=== PATIENT | male | born 1950 | race Caucasian/White ===

== ENCOUNTER → 2018-02-04 | Outpatient (CLI) | payer MEDICARE, OTHER ==
[2018-02-04 08:08] LABS: ABSOLUTE EOSINOPHILS # (AUTO) 0.2 10^3/uL (0.0-0.6); ABSOLUTE LYMPHOCYTES (AUTO) 1.6 10^3/uL (0.5-4.7); ABSOLUTE MONOCYTES (AUTO) 0.5 10^3/uL (0.1-1.4); ABSOLUTE NEUT (AUTO) 3.8 10^3/uL (1.7-8.2); BASOPHILS % (AUTO) 0.8 % (0-2); EOSINOPHILS % (AUTO) 2.5 % (0-6); HEMATOCRIT 46.1 % (37.9-51.0); HEMOGLOBIN 15.8 g/dL (13.5-17.0); LYMPHOCYTES % (AUTO) 25.8 % (13-45); MEAN CORPUSCULAR HEMOGLOBIN 30.3 pg (27.0-33.4); MEAN CORPUSCULAR HGB CONC 34.3 g/dL (32.0-36.0); MEAN CORPUSCULAR VOLUME 88 fl (80-97); PLATELET COUNT 155 10^3/uL (150-450); RED BLOOD COUNT 5.22 10^6/uL (4.35-5.55); RED CELL DISTRIBUTION WIDTH 13.4 % (11.5-14.0); SEGMENTED NEUTROPHILS % (AUTO) 61.9 % (42-78); TOTAL CELLS COUNTED % (AUTO) 100 %; WHITE BLOOD COUNT 6.1 10^3/uL (4.0-10.5)
--- NOTE | 2018-02-04 08:19 | RADIOLOGY REPORT (SQ) ---
EXAM DESCRIPTION: CHEST PA/LATERAL COMPLETED DATE/TIME: 02/04/2018 8:00 am REASON FOR STUDY: PRE-OP COMPARISON: None. EXAM PARAMETERS: NUMBER OF VIEWS: two views TECHNIQUE: Digital Frontal and Lateral radiographic views of the chest acquired. RADIATION DOSE: NA LIMITATIONS: none FINDINGS: LUNGS AND PLEURA: No opacities, masses or pneumothorax. No pleural effusion. MEDIASTINUM AND HILAR STRUCTURES: No masses or contour abnormalities. HEART AND VASCULAR STRUCTURES: Heart normal size. No evidence for failure. BONES: No acute findings. HARDWARE: None in the chest. OTHER: No other significant finding. IMPRESSION: NO SIGNIFICANT RADIOGRAPHIC FINDING IN THE CHEST. TECHNICAL DOCUMENTATION: JOB ID: [id number] [employer]- All Rights Reserved Reading location - IP/workstation name: [email or web address]
[2018-02-04 08:33] LABS: ANION GAP 9 (5-19); BLOOD UREA NITROGEN 24 mg/dL (7-20); CALCIUM 9.7 mg/dL (8.4-10.2); CARBON DIOXIDE 31 mmol/L (22-30); CHLORIDE 104 mmol/L (98-107); GLUCOSE 79 mg/dL (75-110); POTASSIUM 5.6 mmol/L (3.6-5.0); SODIUM 143.6 mmol/L (137-145)
[2018-02-04 08:57] LABS: APPEARANCE,URINE CLEAR; BILIRUBIN,URINE NEGATIVE (NEGATIVE); COLOR,URINE YELLOW; GLUCOSE, URINE NEGATIVE (NEGATIVE); KETONES,URINE NEGATIVE (NEGATIVE); LEUKOCYTE ESTERASE,URINE NEGATIVE (NEGATIVE); NITRITE,URINE NEGATIVE (NEGATIVE); PROTEIN,URINE NEGATIVE (NEGATIVE); URINE SPECIFIC GRAVITY 1.016; UROBILINOGEN,URINE NEGATIVE mg/dL (<2.0)
--- NOTE | 2018-02-04 10:30 | EKG REPORT ---
SEVERITY:- NORMAL ECG - SINUS RHYTHM : Confirmed by: Dianelys Valdez 04-Feb-2018 10:29:39
== END ==
LOC: OD 07:19
PROVIDERS: ATTEND Orthopaedic Surgery
DX: Z01.810 Encounter for preprocedural cardiovascular examination (principal); Z01.812 Encounter for preprocedural laboratory examination; Z01.818 Encounter for other preprocedural examination
CPT/HCPCS: 36415; 71046; 80048; 81001; 85025; 93005; 93010

== ENCOUNTER → 2018-02-10 | Outpatient (CLI) | payer MEDICARE, OTHER ==
[2018-02-10 11:37] LABS: ABSOLUTE EOSINOPHILS # (AUTO) 0.1 10^3/uL (0.0-0.6); ABSOLUTE LYMPHOCYTES (AUTO) 1.7 10^3/uL (0.5-4.7); ABSOLUTE MONOCYTES (AUTO) 0.6 10^3/uL (0.1-1.4); BASOPHILS % (AUTO) 0.4 % (0-2); HEMATOCRIT 46.3 % (37.9-51.0); LYMPHOCYTES % (AUTO) 22.8 % (13-45); MEAN CORPUSCULAR HEMOGLOBIN 30.2 pg (27.0-33.4); MEAN CORPUSCULAR HGB CONC 34.4 g/dL (32.0-36.0); MEAN CORPUSCULAR VOLUME 88 fl (80-97); MONOCYTES % (AUTO) 8.5 % (3-13); PLATELET COUNT 164 10^3/uL (150-450); RED BLOOD COUNT 5.29 10^6/uL (4.35-5.55); RED CELL DISTRIBUTION WIDTH 13.5 % (11.5-14.0); SEGMENTED NEUTROPHILS % (AUTO) 67.3 % (42-78); TOTAL CELLS COUNTED % (AUTO) 100 %; WHITE BLOOD COUNT 7.4 10^3/uL (4.0-10.5)
[2018-02-10 11:42] LABS: APPEARANCE,URINE CLEAR; BILIRUBIN,URINE NEGATIVE (NEGATIVE); COLOR,URINE YELLOW; GLUCOSE, URINE NEGATIVE (NEGATIVE); KETONES,URINE NEGATIVE (NEGATIVE); LEUKOCYTE ESTERASE,URINE NEGATIVE (NEGATIVE); NITRITE,URINE NEGATIVE (NEGATIVE); PROTEIN,URINE NEGATIVE (NEGATIVE); UROBILINOGEN,URINE NEGATIVE mg/dL (<2.0)
[2018-02-10 12:00] LABS: ANION GAP 10 (5-19); BLOOD UREA NITROGEN 21 mg/dL (7-20); CALCIUM 9.7 mg/dL (8.4-10.2); CARBON DIOXIDE 29 mmol/L (22-30); CHLORIDE 104 mmol/L (98-107); GLUCOSE 97 mg/dL (75-110); POTASSIUM 4.5 mmol/L (3.6-5.0); SODIUM 142.7 mmol/L (137-145)
== END ==
LOC: OD 10:32
PROVIDERS: ATTEND Orthopaedic Surgery
DX: Z01.818 Encounter for other preprocedural examination (principal)
CPT/HCPCS: 36415; 80048; 81001; 85025

== ENCOUNTER 2018-03-08 05:33 | Inpatient (IN) | payer MEDICARE, OTHER ==
[~2018-03-08 05:33] MED LIST: CEFAZOLIN SODIUM 2 GM in DEXTROSE 5%-WATER 100 ML IV PRN; IBUPROFEN 800 MG in NORMAL SALINE 250 ML IV PRN; LACTATED RINGERS 1000 ML IV PRN; OXYCODONE HCL SR 10 MG TABLET PO PRN
[2018-03-08] MEDS ORDERED: BUPIVACAINE INJ/PF LIPOSOME/PF 266 MG/20 ML SDV ONE (05:41)
[2018-03-08] MEDS ORDERED: FENTANYL CITRATE INJ/PF 250 MCG/5 ML AMPULE ONE (06:24)
[2018-03-08] MEDS ORDERED: LIDOCAINE 2% INJ-PF (20 MG/ML) 10 ML AMPUL ONE (06:24)
[2018-03-08] MEDS ORDERED: PROPOFOL INJ 200 MG/20 ML VIAL IV ONE (06:25)
[2018-03-08] MEDS ORDERED: MIDAZOLAM 2 MG/2 ML INJ ONE (06:25)
[2018-03-08] MEDS ORDERED: DEXAMETHASONE SOD PHOSPHATE INJ 4 MG/1 ML VIAL ONE (06:25)
[2018-03-08] MEDS ORDERED: ONDANSETRON HCL INJ/PF 4 MG/2 ML SDV ONE (06:25)
[2018-03-08] MEDS ORDERED: ACETAMINOPHEN 100 ML IV ONE ×2 (06:25→16:30)
[2018-03-08] MEDS ORDERED: ONDANSETRON HCL INJ/PF 4 MG/2 ML SDV IV PRN (08:34)
[2018-03-08] MEDS ORDERED: PROMETHAZINE HCL INJ 25 MG/1 ML VIAL IV PRN ×2 (08:34)
[2018-03-08] MEDS ORDERED: MORPHINE SULFATE 10 MG/ML INJ IV PRN ×4 (08:34→10:36)
[2018-03-08] MEDS ORDERED: FENTANYL CITRATE INJ/PF 100 MCG/2 ML AMPUL IV PRN ×3 (08:34)
[2018-03-08] MEDS ORDERED: DIPHENHYDRAMINE HCL 50 MG/ML VIAL IV PRN ×2 (08:34→10:36)
[2018-03-08] MEDS ORDERED: MEPERIDINE HCL/PF INJ 25 MG/1 ML DISP.SYRIN IV PRN (08:34)
[2018-03-08] MEDS ORDERED: ONDANSETRON 4 MG TAB.RAPDIS PO PRN (10:36)
[2018-03-08] MEDS ORDERED: OXYCODONE HCL IR 5 MG TABLET PO PRN (10:36)
[2018-03-08] MEDS ORDERED: MORPHINE SULFATE 10 MG/ML INJ IM PRN (10:36)
--- NOTE | 2018-03-08 10:36 | Operative Report ---
Operative Report DATE OF SURGERY: 03/08/18 PREOPERATIVE DIAGNOSIS: Right shoulder osteoarthritis POSTOPERATIVE DIAGNOSIS: Same OPERATION: Right total shoulder arthroplasty SURGEON: ELLEN CRESPO ANESTHESIA: GA COMPLICATIONS: None ESTIMATED BLOOD LOSS: 150cc PROCEDURE: Indication for above procedure: 67-year-old male with long-standing history of right shoulder pain and discomfort. Patient was found to have degenerative joint disease of his right shoulder. Attempted conservative measures including activity modification, anti -inflammatories and injections which failed to provide long-term relief. Patient continued to have discomfort limiting his activities of daily living. Decision was then made to proceed with operative treatment. Procedure In Detail: Patient was seen and evaluated in the preoperative holding area. The RIGHT upper extremity was initialized and marked. Patient received 600 mg clindamycin IV for bacterial prophylaxis. Patient was taken back to the operative room where transferred to the operative table and placed under general anesthesia. Once they were adequately anesthetize patient was placed in the beachchair position bilateral lower extremities were carefully padded along with the left nonoperative upper extremity and cervical spine placed in neutral position. A surgical team debriefing was performed ensuring all instrumentation was available, the surgical procedure was discussed with possible concerns reviewed. The upper extremity was prepped with chlorhexidine and draped in a sterile fashion. A timeout was done identifying correct patient, procedure and extremity everyone in attendance agree with this and verbalized no concerns. Longitudinal skin incision at the deltopectoral interval was made. Any peripheral bleeding was controlled with cautery. The cephalic vein was identified and retracted in a lateral direction. The clavicle pectoral fascia was then incised. 3 small vessels inferior to the subscapularis was identified and cauterized. The bicipital groove was opened and the biceps tendon retracted. The rotator interval was opened and the biceps tendon tenotomized to allow for later tenodesis. The axillary nerve was identified medially and protected throughout the entirety of the case. The subscapularis was peeled from its insertion on the lesser tuberosity to allow for later repair. The joint was then entered with adduction external rotation delivering the humeral head. Significant osteophytes were identified throughout the humeral head. With the cutting guide the humeral head was osteotomized and placed in the back table to allow for later bone grafting. The canal finder was utilized to confirm placement of the Arthrex approaches. I then began broaching broaching up to a size 12 broach and got good peripheral fit. The broach was then removed and a cover placed onto the proximal humerus. The anterior capsule was then from the subscapularis and released to allow exposure of the glenoid. Careful dissection of the inferior labrum was done to avoid injury to the axillary nerve. The labrum was then excised in its entirety. With a Fukuda retractor the glenoid was exposed. I then began preparation of the glenoid. The glenoid sizer was placed on the glenoid and the central pin placed. Cannulated central drill was utilized to prepare the central drill hole. The aiming arm for the pegged glenoid was then placed within the central hole. The glenoid was then prepared with the planar removing the superior cartilage down to cancellus bone. The superior peg was drilled and the inferior keel drilled as well. With an impactor I confirmed adequate preparation of the glenoid. Wound was then copiously irrigated with normal saline a trial placed. The trial components were then inserted I had good stability with abduction and internal rotation to 60. Good stability adduction 50 external rotation. I was able to shift the humeral head posteriorly approximately 40% indicating adequate sizing. The trial components were then removed and the wound copiously irrigated with normal saline. On the back table I utilized the bone graft from the humeral head and placed around the PEG of my glenoid component. My campaign assistant prepared the cement once the cement was the adequate consistency it was placed within the peg holes of the glenoid and a small portion placed on the pegs of the implant. The cement holes were pressurized 3 times to ensure adequate filling of the cement. I then implanted the glenoid component maintaining pressure until the cement was set. I then turned my attention to implantation of the humeral component. FiberWire #2 was placed through the implant to allow subscapularis repair. 2 drill holes were placed within the bicipital groove and the implant was impacted into position. The trial head was placed to ensure appropriate offset this was then removed and the definitive humeral head implant was impacted into position. Special attention to adequate impaction of the humeral head was confirmed. The humerus was then reduced there was 50% posterior translation with bounce back, 60 of internal rotation abduction and 40 external rotation. The wound was copiously irrigated with normal saline. I then proceeded with subscapularis repair. Four horizontal mattress sutures were placed within the subscapularis. The superior limb was then tied to the transosseous suture superiorly and the most inferior limb secured with the inferior transosseous suture. In a crossing the configuration 2 additional sutures were secured to the remaining transosseous sutures. Then the remaining suture from the horizontal mattress were secured which allowed excellent fixation of the subscapularis with stability to 40 of external rotation. Deep soft tissue was infiltrated with Exparel for postoperative pain control. The wound was once again copiously irrigated with normal saline. The deltopectoral interval was then reapproximated with 0 Vicryl suture. Subcutaneous tissues closed with 3-0 Monocryl suture. Skin was closed with antoinette. Wound was dressed with Acticoat dressing and patient placed in a splint. Sponge counts, instrument counts, needle counts counts were correct. Patient was then awoken from anesthesia. Transferred from the operating room table to the operating room stretcher. There was no intraoperative complications patient tolerated procedure well stable to PACU. Postoperative plan: Patient will be admitted for 24-hour observation with discharge to home on . Will begin physical therapy 2 weeks postoperatively as per total shoulder protocol avoiding active internal rotation and passive external rotation greater than 40. May begin active assistive range of motion abduction and forward flexion. Patient will be started on Xarelto for DVT prophylaxis while inpatient and on aspirin at home.
[2018-03-08] MEDS ORDERED: RINGERS SOLUTION,LACTATED 1,000 ML IV PRN (10:37)
--- NOTE | 2018-03-08 12:12 | RADIOLOGY REPORT (SQ) ---
EXAM DESCRIPTION: SHOULDER RIGHT 2 OR MORE VIEWS COMPLETED DATE/TIME: 03/08/2018 11:56 am REASON FOR STUDY: s/p tsa M19.011 PRIMARY OSTEOARTHRITIS, RIGHT SHOULDER COMPARISON: None. NUMBER OF VIEWS: Two views. TECHNIQUE: Internal and external rotation images acquired of the right shoulder. LIMITATIONS: None. FINDINGS: Expected postoperative changes from shoulder arthroplasty. Components in expected locatio n. IMPRESSION: Satisfactory postop total shoulder arthroplasty. TECHNICAL DOCUMENTATION: JOB ID: [id number] [employer]- All Rights Reserved Reading location - IP/workstation name: [email or web address]
--- NOTE | 2018-03-08 13:08 | PDOC CONSULTATION ---
Consultation Consult Date: 03/08/18 Attending physician:: ASHLEY CARMONA Consult reason:: difficult catheterization of bladder History of Present Illness Admission Date/PCP: 03/08/18 05:33 HEATHER WOODS PA-C Patient complains of: coming for shoulder surgery, did not have any urinary problems before History of Present Illness: JAYCEE FLORIAN is a 67 year old male Past Medical History Musculoskeltal Medical History: Reports: Arthritis Denies: Fibromyalgia Past Surgical History Past Surgical History: Reports: Tonsillectomy Denies: Appendectomy, Cholecystectomy, Coronary Artery Bypass Graft, Gastric Bypass Surgery, Herniorrhaphy, Pacemaker Social History Smoking Status: Current Every Day Smoker Hx Recreational Drug Use: No Hx Prescription Drug Abuse: No - Advance Directive Resuscitation Status: Full Code Family History Parental Family History Reviewed: No Children Family History Reviewed: No Sibling(s) Family History Reviewed.: No Medication/Allergy Home Medications: Aspirin [Aspirin 325 mg Tablet] 325 mg PO DAILY 21 Days #21 tablet 03/08/18 Oxycodone HCl/Acetaminophen [Percocet 5-325 mg Tablet] 1 - 2 tab PO ASDIR PRN # 35 tablet 03/08/18 Allergies/Adverse Reactions: No Known Allergies Allergy (Verified 03/08/18 06:35) Physical Exam Vital Signs: Temp Pulse Resp BP Pulse Ox 98.0 F 89 17 125/69 93 03/08/18 11:44 03/08/18 11:44 03/08/18 11:44 03/08/18 11:44 03/08/18 11:44 Intake & Output 03/07/18 03/08/18 03/09/18 06:59 06:59 06:59 Intake Total 0 4050 Output Total 1250 Balance 0 2800 Results Laboratory Results: 03/08/18 06:01 Blood Type AB POSITIVE Antibody Screen NEGATIVE Impressions: Shoulder X-Ray 03/08/18 00:00 IMPRESSION: Satisfactory postop total shoulder arthroplasty. Assessment & Plan - Diagnosis (1) BPH loc w/o ur obs/LUTS Is this a current diagnosis for this admission?: No - Plan Summary Plan Summary: ultrasound was done to check residual of bladder, was not significant and he was able to void freely 120 cc
[2018-03-08] MEDS ORDERED: PHENYLEPHRINE HCL INJ/PF 10 MG/1 ML SDV ONE (13:26)
[2018-03-08] MEDS ORDERED: SUCCINYLCHOLINE CHLORIDE INJ 200 MG/10 ML VIAL ONE (13:26)
[2018-03-08] MEDS ORDERED: CEFAZOLIN 2 GM/D5W RTU 50 ML IV SCH (14:00)
[2018-03-08] MEDS: CEFAZOLIN SODIUM 2 GM in DEXTROSE 5%-WATER 100 ML IV SCH ×2 (14:21→21:55)
--- NOTE | 2018-03-08 16:40 | Progress Note ---
Provider Note Provider Note: Patient sitting at bedside comfortably. States pain is controlled. Denies fever chills or sweats. Has been able to void with out any difficulty. Right upper extremity: Dressing clean/dry/intact. No sensory deficits. Full elbow, wrist and hand range of motion. Patient doing well status post right total shoulder arthroplasty. Anticipate discharge in a.m. 03/09/18
[2018-03-08] MEDS: PREGABALIN 75 MG CAPSULE PO SCH (17:50)
[2018-03-08] MEDS: LANSOPRAZOLE 15 MG TAB.RAP.DR PO PRN ×2 (20:14→20:16)
[2018-03-08] MEDS: OXYCODONE HCL SR 10 MG TABLET PO SCH (20:35)
[2018-03-08] MEDS ORDERED: RIVAROXABAN 10 MG TABLET PO SCH (22:00)
[2018-03-09] MEDS ORDERED: LANSOPRAZOLE 30 MG TAB.RAP.DR PO SCH (06:00)
[2018-03-09] MEDS: CEFAZOLIN SODIUM 2 GM in DEXTROSE 5%-WATER 100 ML IV SCH (06:37)
[2018-03-09 07:10] LABS: HEMATOCRIT 34.2 % (37.9-51.0); HEMOGLOBIN 11.8 g/dL (13.5-17.0); MEAN CORPUSCULAR HEMOGLOBIN 30.3 pg (27.0-33.4); MEAN CORPUSCULAR HGB CONC 34.4 g/dL (32.0-36.0); MEAN CORPUSCULAR VOLUME 88 fl (80-97); PLATELET COUNT 127 10^3/uL (150-450); RED BLOOD COUNT 3.89 10^6/uL (4.35-5.55); RED CELL DISTRIBUTION WIDTH 13.4 % (11.5-14.0); WHITE BLOOD COUNT 13.7 10^3/uL (4.0-10.5)
[2018-03-09 07:24] LABS: ANION GAP 8 (5-19); BLOOD UREA NITROGEN 16 mg/dL (7-20); CALCIUM 8.7 mg/dL (8.4-10.2); CARBON DIOXIDE 30 mmol/L (22-30); CHLORIDE 103 mmol/L (98-107); GLUCOSE 104 mg/dL (75-110); POTASSIUM 4.1 mmol/L (3.6-5.0); SODIUM 140.7 mmol/L (137-145)
[2018-03-09 08:27] VITALS: BP 121/90
[2018-03-09] MEDS: PREGABALIN 75 MG CAPSULE PO SCH (10:06)
[2018-03-09] MEDS: OXYCODONE HCL SR 10 MG TABLET PO SCH (10:07)
== END 2018-03-09 12:00 | disposition home or self-care (01) | DRG 483 ==
LOC: INOR 05:33 → 4N 12:04
PROVIDERS: ADMIT Orthopaedic Surgery; ATTEND Orthopaedic Surgery
PROC: 0RRJ0JZ Replacement of Right Shoulder Joint with Synthetic Substitute, Open Approach (ICD-10-PCS; principal; 2018-03-08 07:30)
DX: M19.011 Primary osteoarthritis, right shoulder (principal); F17.200 Nicotine dependence, unspecified, uncomplicated; Z80.42 Family history of malignant neoplasm of prostate; R39.198 Other difficulties with micturition
CPT/HCPCS: 01638; 36415; 80048; 85027; 86850; 86900; 86901; 88305; 88311; 94799; C9290; G8984-GO; G8985-GO; J0131; J0330; J0690; J1100; J1741; J2250; J2370; J2405; J2704; J3010; J3490; J7050; L3650; S0119

== ENCOUNTER → 2018-04-07 | Outpatient (CLI) | payer MEDICARE, OTHER ==
--- NOTE | 2018-04-07 13:52 | RADIOLOGY REPORT (SQ) ---
EXAM DESCRIPTION: CT ABD/PELVIS COMBO COMPLETED DATE/TIME: 04/07/2018 1:29 pm REASON FOR STUDY: R31.0 GROSS HEMATURIA R31.0 GROSS HEMATURIA COMPARISON: None. TECHNIQUE: CT scan of the abdomen and pelvis performed with and without intravenous contrast, and wi thout oral contrast. Contrasted imaging performed helical scanning technique and dynamic intravenous contrast injection. Images reviewed with lung, soft tissue, and bone windows. Reconstructed coronal a nd sagittal MPR images reviewed. Delayed images for evaluation of the urinary system also acquired. A ll images stored on PACS. All CT scanners at this facility use dose modulation, iterative reconstruction, and/or weight based d osing when appropriate to reduce radiation dose to as low as reasonably achievable (ALARA). [facility]: Dose Right [facility]: CareDose [facility]: Dose Right [facility]: Teradose 4D [facility]: [employer] CONTRAST TYPE AND DOSE: contrast/concentration: Isovue 370.00 mg/ml; Total Contrast Delivered: 76.0 ml; Total Saline Delivered: 67.0 ml RENAL FUNCTION: BUN 16 creatinine 0.88. RADIATION DOSE: CT Rad equipment meets quality standard of care and radiation dose reduction techniq ues were employed. CTDIvol: 9.5 - 9.8 mGy. DLP: 1501 mGy-cm. . LIMITATIONS: None. FINDINGS: NON-CONTRASTED IMAGING: No significant renal or bladder calcifications. No other significa nt organ calcifications. POST-CONTRASTED IMAGING: LOWER CHEST: No significant findings. No nodules or infiltrates. LIVER: Normal size. No masses. No dilated ducts. SPLEEN: Normal size. No focal lesions. PANCREAS: No masses. No significant calcifications. No adjacent inflammation or peripancreatic fluid collections. Pancreatic duct not dilated. GALLBLADDER: No identified stones by CT criteria. No inflammatory changes to suggest cholecystitis. ADRENAL GLANDS: No significant masses or asymmetry. RIGHT KIDNEY AND URETER: Mild focal cortical scarring in the upper pole. 1 cm parapelvic cyst. No s olid masses. No significant calcifications. No hydronephrosis or hydroureter. LEFT KIDNEY AND URETER: Mild focal cortical scarring in the upper pole. No solid masses. 3 mm calc ulus in a midpole calyx. No hydronephrosis or hydroureter. AORTA AND VESSELS: No aneurysm. No dissection. Renal arteries, SMA, celiac without stenosis. RETROPERITONEUM: No retroperitoneal adenopathy, hemorrhage or masses. BOWEL AND PERITONEAL CAVITY: No masses or inflammatory changes. No free fluid or peritoneal masses. APPENDIX: Normal. PELVIS: No mass. No free fluid. Normal bladder. ABDOMINAL WALL: No masses. No hernias. BONES: No significant or acute findings. OTHER: No other significant finding. IMPRESSION: 1. 3 MM NONOBSTRUCTING CALYCEAL CALCULUS IN THE LEFT KIDNEY. 2. MILD FOCAL CORTICAL SCARRING IN THE UPPER POLE OF BOTH KIDNEYS. SMALL PARAPELVIC CYST IN THE RIGH T KIDNEY. 3. NO OTHER SIGNIFICANT OR ACUTE ABNORMALITY IN THE ABDOMEN OR PELVIS. TECHNICAL DOCUMENTATION: JOB ID: [id number] Quality ID # [id number]: Final reports with documentation of one or more dose reduction techniques (e.g., Au tomated exposure control, adjustment of the mA and/or kV according to patient size, use of iterative reconstruction technique) 2010 [employer]- All Rights Reserved Reading location - IP/workstation name: [email or web address]
== END ==
LOC: RAD 13:25
PROVIDERS: ATTEND Urology
DX: R31.0 Gross hematuria (principal)
CPT/HCPCS: 74178

== ENCOUNTER → 2019-10-11 | Day surgery (SDC) | payer MEDICARE, OTHER ==
--- NOTE | 2019-10-11 14:59 | RADIOLOGY REPORT (SQ) ---
EXAM DESCRIPTION: U/S BIOPSY SUPERFIC LYMPH NODE COMPLETED DATE/TIME: 10/11/2019 10:36 am REASON FOR STUDY: R59.0 LOCALIZED ENLARGED LYMPH NODES COMPARISON: None. TECHNIQUE: The procedure, risks, benefits, and alternatives were discussed with the patient in the p reprocedural area, and all questions were answered. Informed consent was obtained verbally and in wri ting. The patient was then brought to the ultrasound suite, positioned supine on a gurney, and a time-out w as performed. After that, selected grayscale and color Doppler images of the heterogeneous hypoechoi c mass in the left submandibular region were obtained. Based on review of the images an appropriate a ccess site was selected on the skin. The area around selected access site was then prepped and draped 2% chlorhexidine utilizing standard sterile technique. After that, the access site was infiltrated with 1% lidocaine and an incision was made in the skin with a #11 blade. A 17 gauge coaxial needle was then advanced through the skin inci starr and into the hypoechoic mass utilizing sonographic guidance. After that, the inner stylet of the coaxial needle was removed and 4 18 gauge core samples were obtained of the mass - the samples were collected and submitted to cytopathology in formalin. The coaxial needle was then removed and selected grayscale and color Doppler images of the mass were repeated and reviewed ; the images demonstrated no acute biopsy-related complication. The patient tolerated the procedure well with local anesthesia. At the end of the procedure the patient's condition was unchanged from the preprocedural baseline. Documentation of [id number] time the performing proceduralist spent monitoring the patient: 15 mary kristie. LIMITATIONS: None. FINDINGS: Integrated into the Technique. IMPRESSION: Successful ultrasound-guided biopsy of the heterogeneous hypoechoic mass in the is left submandibular region. TECHNICAL DOCUMENTATION: JOB ID: [id number] [employer]- All Rights Reserved Reading location - IP/workstation name: [email or web address]
== END ==
LOC: RAD 08:45
PROVIDERS: ATTEND Physician Assistant
DX: C96.9 Malignant neoplasm of lymphoid, hematopoietic and related tissue, unspecified (principal)
CPT/HCPCS: 38505; 88173; 88305

== ENCOUNTER → 2019-10-24 | Outpatient (CLI) | payer MEDICARE, OTHER ==
--- NOTE | 2019-10-26 12:30 | RADIOLOGY REPORT (SQ) ---
EXAM DESCRIPTION: PET CT SKULL/THIGH COMPLETED DATE/TIME: 10/24/2019 5:32 pm REASON FOR STUDY: C76.0 MALIGNANT NEOPLASM OF HEAD, FACE AND NECK C76.0 MALIGNANT NEOPLASM OF HEAD, FACE AND NECK COMPARISON: CT abdomen pelvis 04/07/2018 Ultrasound-guided lymph node biopsy 10/11/2019 CT chest 10/18/2019 RADIONUCLIDE AND DOSE: 93 mCi F18 FDG The route of agent administration: Intravenous FASTING BLOOD SUGAR: 103 mg/dl CONTRAST TYPE AND DOSE: No CT contrast given. TECHNIQUE: Blood glucose level was verified. Above dose of FDG was injected intravenously. 2-D seg mented attenuation correction images were obtained from the base of the skull to the midthighs. Nonc ontrast CT images were obtained for attenuation correction and fusion with emission images. CT image s were performed without oral or intravenous contrast and are not sensitive for parenchymal lesions. A series of overlapping emission PET images were obtained. Images reviewed and manipulated at [facility] work station by the radiologist. Images stored on PACS. LIMITATIONS: None. FINDINGS: HEAD AND NECK: There is minimal increased uptake along the lymphoid tissue at the left ton usha base just to the left of midline with SUV of 3.3. A 2.4 x 2 cm complex cystic and solid lymph node is present along the left jugulodigastric region on axial image 35/303 with SUV 6.2. This was previously biopsied. This is unchanged from soft tissue n dori MR 10/18/2019. A 1.5 x 1 cm cystic necrotic lymph node is present on axial image 42/303 with SUV of 1.0. A 1.5 x 1 cm solid level 3 lymph node is present on the left, best shown on axial image 50/303 with S UV of 3.6. This correlates with MRI soft tissue neck 10/18/2019. CHEST: No areas of abnormal metabolic activity in the chest. ABDOMEN AND PELVIS: No areas of abnormal metabolic activity in the abdomen or pelvis. Expected physi ologic activity is present in the genitourinary system and bowel. PROXIMAL LOWER EXTREMITIES: No areas of abnormal metabolic activity in the soft tissues of the lower extremities. BONES: No abnormal metabolic activity in the visualized skeleton. ADDITIONAL CT FINDINGS: Incidental finding of a right shoulder replacement with mild periarticular ac tivity with SUV of 4.5. OTHER: Liver background activity 1.8 SUV. Blood pool background activity 1.4 SUV IMPRESSION: Mild increased uptake along the left tongue base lymphoid tissue of uncertain significan ce Hypermetabolic left cervical lymph nodes, the largest of these has been biopsied. Periarticular activity along the right shoulder replacement of uncertain clinical significance. Remainder of this study is otherwise unremarkable TECHNICAL DOCUMENTATION: JOB ID: [id number] [employer]- All Rights Reserved Reading location - IP/workstation name: [email or web address]
== END ==
LOC: RAD 09:00
PROVIDERS: ATTEND Internal Medicine Hematology & Oncology
DX: C76.0 Malignant neoplasm of head, face and neck (principal)
CPT/HCPCS: 78815; A9552

== ENCOUNTER 2019-11-03 12:55 | Day surgery (SDC) | payer MEDICARE, OTHER ==
[~2019-11-03 12:55] MED LIST changes: +AMPICILLIN SODIUM 2 GM in NORMAL SALINE 100 ML IV PRN; -CEFAZOLIN SODIUM 2 GM in DEXTROSE 5%-WATER 100 ML IV PRN; +DEXAMETHASONE SOD PHOSPHATE INJ 4 MG/1 ML VIAL ONE; +FENTANYL CITRATE INJ/PF 100 MCG/2 ML AMPUL ONE; -IBUPROFEN 800 MG in NORMAL SALINE 250 ML IV PRN; -LACTATED RINGERS 1000 ML IV PRN; +MIDAZOLAM 2 MG/2 ML INJ ONE; +ONDANSETRON HCL INJ/PF 4 MG/2 ML SDV ONE; -OXYCODONE HCL SR 10 MG TABLET PO PRN; +PROPOFOL INJ 200 MG/20 ML VIAL IV ONE
[2019-11-03] MEDS ORDERED: TRIAMCINOLONE ACETONIDE INJ 40 MG/1 ML VIAL ONE (13:52)
[2019-11-03] MEDS ORDERED: COCAINE HCL 4% TOPICAL SOLN 4 ML ONE (13:53)
[2019-11-03] MEDS ORDERED: OXYMETAZOLINE HCL 0.05% NASAL SPRAY 15 ML BOTTLE ONE (13:53)
[2019-11-03] MEDS ORDERED: ALBUTEROL SULFATE 0.083% NEB 2.5 MG/3 ML AMPUL NEB ONE (13:56)
[2019-11-03] MEDS ORDERED: COCAINE HCL 4% TOPICAL SOLN 4 ML TP ONE (14:45)
[2019-11-03] MEDS ORDERED: PROMETHAZINE HCL INJ 25 MG/1 ML VIAL IV PRN ×2 (14:50)
[2019-11-03] MEDS ORDERED: OXYCODONE-ACETAMINOPHEN 5-325 MG TABLET PO PRN ×2 (14:50)
[2019-11-03] MEDS ORDERED: MEPERIDINE HCL/PF INJ 25 MG/1 ML DISP.SYRIN IV PRN (14:50)
[2019-11-03] MEDS ORDERED: ONDANSETRON HCL INJ/PF 4 MG/2 ML SDV IV PRN ×2 (14:50→15:47)
[2019-11-03] MEDS ORDERED: FENTANYL CITRATE INJ/PF 100 MCG/2 ML AMPUL IV PRN ×3 (14:50)
[2019-11-03] MEDS ORDERED: DIPHENHYDRAMINE HCL 50 MG/ML VIAL IV PRN (14:50)
[2019-11-03] MEDS ORDERED: OXYMETAZOLINE HCL 0.05% NASAL SPRAY 15 ML BOTTLE NASL ONE (15:33)
[2019-11-03] MEDS ORDERED: HYDROCOD/ACETAMIN 7.5-325 MG/15 ML ORAL SOLN UDCUP ONE (15:53)
--- NOTE | 2019-11-03 16:46 | Operative Report ---
Operative Report-[facility] Operative Report: Date: 03 November 2019 History: Patient presents with a history of a left neck mass that was biopsied using fine-needle aspiration. The diagnosis was basaloid carcinoma with squamous features. The patient had a PET CT scan identified a uptake in the left base of tongue. Physical exam in clinic using a flexible fiberoptic scope did not identify a discrete lesion in the base of tongue area. Leukoplakia was identified in the retromolar trigone on the left side. The patient presents for a biopsy of the leukoplakia left retromolar trigone and a direct laryngoscopy with biopsy left base of tongue. Informed consent was obtained from the patient. Pre-operative diagnosis: 1. 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 2. Leukoplakia left retromolar trigone 3. Unknown primary upper aerodigestive tract. Post operative diagnosis: Same as above Procedure: 1. Direct laryngoscopy with biopsy left base of tongue 2. Biopsy left retromolar trigone leukoplakia. Surgeon: Mook Hernandes MD, FACS, [facility] Anesthesia: General via endotracheal intubation Procedure: After receiving informed consent from the patient, he was taken to the operating room and placed on the operating room table. After successful induction and intubation by anesthesia, attention was then directed to the left retromolar trigone area. A 4 mm skin punch was used to take a biopsy of the left retromolar trigone area. Hemostasis was obtained using silver nitrate. The patient was then turned 90 degrees and a mouthguard was placed over the maxillary dentition. A laryngoscope was then used to perform a direct laryngoscopy assessing the upper aerodigestive tract. No overt masses or lesions were noted. Specifically the areas of concern were the base of tongue and piriform fossa and these areas appeared without evidence of overt masses or lesions. This laryngoscope was removed and a Gagan laryngoscope was used to expose the left base of tongue the patient was then put in suspension. Able biopsies were taken of the left base of tongue area. Hemostasis was obtained using both Afrin and 4% cocaine saturated cottonoids. After the biopsies were completed, the patient was taken out of suspension and the laryngoscope removed. The patient tolerated the procedure well. Patient was then given back to anesthesia who successfully extubated the patient without any complications. Estimated blood loss: Normal Fluids: 500 mL The patient was then transported to the Post Anesthesia Care Unit in stable condition with spontaneous respiration. No complication.
[2019-11-03 17:31] VITALS: BP 126/81
--- NOTE | 2019-11-03 19:46 | EKG REPORT ---
SEVERITY:- NORMAL ECG - SINUS RHYTHM : Confirmed by: Marck Lopez MD 03-Nov-2019 19:46:00
== END 2019-11-03 17:30 | disposition home or self-care (01) ==
LOC: OROUT 12:55
PROVIDERS: ATTEND Otolaryngology
DX: C01 Malignant neoplasm of base of tongue (principal); K13.21 Leukoplakia of oral mucosa, including tongue; R59.0 Localized enlarged lymph nodes; F17.210 Nicotine dependence, cigarettes, uncomplicated
CPT/HCPCS: 88305 ×2; 93005; 93010; 31535; J0290; J2250; J3490; J1100; J3010; A9270 ×3; J2405; J7050; J2704; J3301